=== PATIENT | female | born 1970 | race Caucasian/White ===

== ENCOUNTER 2017-07-08 07:45 | Emergency (ER) | payer OTHER ==
[~2017-07-08] VITALS: Ht 167.6 cm; Wt 78.0 kg
[2017-07-08] MEDS ORDERED: SODIUM CHLORIDE 0.9% 1,000 ML IV ONE (08:16)
[2017-07-08] MEDS ORDERED: ONDANSETRON ODT 4 MG PO ONE (08:30)
[2017-07-08] MEDS ORDERED: ASPIRIN 81 MG TABLET CHEW PO ONE (08:30)
[2017-07-08] MEDS ORDERED: MORPHINE SULFATE 4 MG/ML, 1ML IVPush PRN (08:30)
[2017-07-08] MEDS ORDERED: ALBUTEROL/IPRATROPIUM 2.5MG/0.5MG, 3 ML ONE (08:31)
[2017-07-08] MEDS ORDERED: ONDANSETRON ODT 4 MG ONE (08:45)
[2017-07-08] MEDS ORDERED: MORPHINE SULFATE 4 MG/ML, 1ML ONE (08:46)
[2017-07-08] MEDS ORDERED: ASPIRIN 81 MG TABLET CHEW ONE (08:46)
[2017-07-08] MEDS ORDERED: ALBUTEROL/IPRATROPIUM 2.5MG/0.5MG, 3 ML NEB ONE (09:00)
[2017-07-08] MEDS ORDERED: LORazepam 2 MG/ML, 1ML ONE (09:03)
[2017-07-08] MEDS ORDERED: LORazepam 2 MG/ML, 1ML IVPush ONE (09:30)
[2017-07-08 09:41] LABS: BASOPHILS # (AUTO) 0.04 x10^3/uL (0-0.1); BASOPHILS % (AUTO) 1 % (0-1); EOSINOPHILS # (AUTO) 0.04 x10^3/uL (0-0.4); EOSINOPHILS % (AUTO) 1 % (1-7); LYMPHOCYTES # (AUTO) 1.53 x10^3/uL (1-3.4); LYMPHOCYTES % (AUTO) 21 % (22-44); MD NO; MEAN CORPUSCULAR HEMOGLOBIN 31.8 pg (27.0-34.8); MEAN CORPUSCULAR HGB CONC 33.3 g/dL (32.4-35.8); MEAN CORPUSCULAR VOLUME 95.6 fL (80-100); MEAN PLATELET VOLUME 7.7 fL (7.4-10.4); MONOCYTES # (AUTO) 0.64 x10^3/uL (0.2-0.8); MONOCYTES % (AUTO) 9 % (2-9); NEUTROPHILS # (AUTO) 4.94 x10^3/uL (1.8-6.8); NEUTROPHILS % (AUTO) 69 % (42-75); PLATELET COUNT 241 x10^3/uL (130-400); RED BLOOD COUNT 4.13 x10^6/uL (3.82-5.3); RED CELL DISTRIBUTION WIDTH 15.2 % (9.6-15.2)
[2017-07-08 09:51] LABS: ALBUMIN 3.6 g/dL (3.4-5.0); ANION GAP 8 mmol/L (5-15); CALCIUM 8.2 mg/dL (8.5-10.1); CHLORIDE 108 mmol/L (98-107); CREATININE 0.67 mg/dL (0.55-1.02)
[2017-07-08 09:55] LABS: TROPONIN I < 0.015 ng/mL (0.000-0.045)
[2017-07-08] MEDS ORDERED: ALBU0.63 INH (10:15)
[2017-07-08 10:27] VITALS: BP 148/72
== END 2017-07-08 10:36 | disposition home or self-care (01) ==
LOC: ED 08:57
DX: J45.31 Mild persistent asthma with (acute) exacerbation (principal); R07.89 Other chest pain; I10 Essential (primary) hypertension; F17.200 Nicotine dependence, unspecified, uncomplicated
CPT/HCPCS: 36415; 71045; 80048; 82040; 83880; 84484; 85025; 85379; 93005; 94640; 96374; 96375; 99285; J2060; J7030; Q0162; 96361; J7620